=== PATIENT | female | born 1965 ===

== ENCOUNTER → 2022-09-27 14:01 | Outpatient (CLI) | payer BC, SELFPAY ==
--- NOTE | ~2022-09-27 | MR_ITS ---
MRI of the cervical spine Clinical History: Radiculopathy Technique: Axial T2-weighted and gradient images, and sagittal T1-weighted, T2-weighted, and STIR ramesh ges were acquired. Findings: There is no fracture or subluxation of the cervical spine. Vertebral bodies maintain normal height and alignment. No suspicious bone marrow signal abnormality seen. At C2-C3, there is no disc bulge or herniation. No spinal canal stenosis, cord compression, or neural foraminal narrowing. At C3-C4, there is mild disc osteophyte complex. There is mild right facet arthropathy. There is righ t neural foraminal narrowing. Left neural foramen preserved. No central canal stenosis or cord compre ssion. At C4-C5, there is disc osteophyte complex and right facet arthropathy with right neural foraminal na rrowing. Left neural foramen preserved. Possible minimal canal stenosis without dipti cord compressio n. At C5-C6, there is mild disc osteophyte complex with minimal canal stenosis but no dipti cord dez zaria. There is bilateral neural foraminal narrowing, right worse than left. At C6-C7, there is minimal disc osteophyte complex. Probable minimal canal stenosis without dipti cor d compression. There is bilateral neural foraminal narrowing. No abnormal signal seen in the spinal cord. Paravertebral soft tissues are unremarkable. Impression: Moderate degenerative spondylosis of the cervical spine, as detailed above, with multilevel neural fo raminal narrowing and mild canal stenosis. Reviewed, dictated and finalized at [facility]. Impression: Moderate degenerative spondylosis of the cervical spine, as detailed above, wit h multilevel neural foraminal narrowing and mild canal stenosis.
== END ==
PROVIDERS: PCP Family Medicine; Visit Provider Family Medicine
DX: M47.22 Other spondylosis with radiculopathy, cervical region (principal)
CPT/HCPCS: 72141